=== PATIENT | female | born 1990 | race Caucasian/White ===

== ENCOUNTER 2016-03-04 14:50 | Inpatient (IN) | payer OTHER ==
[~2016-03-04] VITALS: Ht 157.5 cm; Wt 128.4 kg
[2016-03-04] MEDS ORDERED: OXYTOCIN 10 UNITS/ML VIAL ONE (15:25)
[2016-03-04] MEDS ORDERED: LACTATED RINGERS 1,000 ML IV SCH (15:28)
[2016-03-04] MEDS ORDERED: CITRIC ACID/SODIUM CITRATE 30 ML UDC PO SCH (15:30)
[2016-03-04] MEDS ORDERED: IBUPROFEN 800 MG TAB PO PRN ×2 (15:30→17:45)
[2016-03-04 16:00] VITALS: BP 144/85
[2016-03-04] MEDS ORDERED: KETOROLAC 30 MG/ML VIAL IVP ONE (16:52)
[2016-03-04] MEDS ORDERED: ONDANSETRON 4 MG/2 ML VIAL IVP ONE (16:52)
[2016-03-04] MEDS ORDERED: PROPOFOL 200 MG/20 ML VIAL IV ONE (16:52)
[2016-03-04] MEDS ORDERED: DESFLURANE 240 ML BTL INH ONE (16:52)
[2016-03-04] MEDS ORDERED: SUCCINYLCHOLINE CHLORIDE 200 MG/10 ML VIAL IV ONE (16:52)
[2016-03-04] MEDS ORDERED: HYDROmorphone PFS 2 MG/ML SYR ONE ×2 (17:16→18:20)
[2016-03-04] MEDS ORDERED: ONDANSETRON 4 MG/2 ML VIAL IVP PRN (17:25)
[2016-03-04] MEDS ORDERED: HYDROmorphone 1 MG/ML AMP IVP PRN (17:25)
[2016-03-04] MEDS ORDERED: OXYTOCIN 20 UNITS/LR PREMIX 1,000 ML IV SCH (17:41)
[2016-03-04] MEDS ORDERED: METHYLERGONOVINE 0.2 MG/ML AMP IM PRN (17:45)
[2016-03-04] MEDS ORDERED: TRIMETHOBENZAMIDE 200 MG/2 ML SYR IM PRN (17:45)
[2016-03-04] MEDS ORDERED: MEASLES, MUMPS, AND RUBELLA 1 VIAL SQVAC PRN (17:45)
[2016-03-04] MEDS ORDERED: HYDROcodone/APAP 5/325 MG 1 TAB TAB PO PRN (17:45)
[2016-03-04] MEDS ORDERED: TEMAZEPAM 15 MG CAP PO PRN (17:45)
[2016-03-04] MEDS ORDERED: HEPATITIS B VACCINE PEDIATRIC 10 MCG/0.5 ML VIAL IMVAC ONE (18:21)
[2016-03-04] MEDS ORDERED: PHYTONADIONE 1 MG/0.5 ML SYR ONE (18:21)
[2016-03-04] MEDS: HYDROmorphone 1 MG/ML AMP IVP PRN (20:37)
[2016-03-04] MEDS: DOCUSATE SOD/SENNA 50/8.6 MG 1 TAB PO SCH (21:00)
[2016-03-05] MEDS ORDERED: KETOROLAC 30 MG/ML VIAL IVP PRN
[2016-03-05] MEDS: HYDROmorphone 1 MG/ML AMP IVP PRN (00:41)
[2016-03-05] MEDS: oxyCODONE/APAP 5/325 MG 1 TAB TAB PO PRN ×3 (06:23→19:38)
[2016-03-05] MEDS: SIMETHICONE 80 MG TAB.CHEW PO PRN ×3 (08:54→17:54)
--- NOTE | 2016-03-05 10:04 | NUR ---
PATIENT HAS BEEN SCREENED AND CATEGORIZED LOW NUTRITION RISK. PATIENT WILL BE SEEN WITHIN 7 DAYS OF ADMISSION. 03/11/[address]
[2016-03-05] MEDS: DOCUSATE SOD/SENNA 50/8.6 MG 1 TAB PO SCH (19:38)
[2016-03-06] MEDS: oxyCODONE/APAP 5/325 MG 1 TAB TAB PO PRN ×2 (01:14→08:30)
== END 2016-03-06 14:00 | disposition home or self-care (01) | DRG 540 ==
LOC: MLD 14:50 → MFCC 17:29
PROVIDERS: ADMIT Obstetrics & Gynecology; ATTEND Obstetrics & Gynecology
PROC: 0UB70ZZ Excision of Bilateral Fallopian Tubes, Open Approach (ICD-10-PCS; 2016-03-04)
PROC: 3E0234Z Introduction of Serum, Toxoid and Vaccine into Muscle, Percutaneous Approach (ICD-10-PCS; 2016-03-04)
PROC: 10D00Z1 Extraction of Products of Conception, Low, Open Approach (ICD-10-PCS; principal; 2016-03-04 15:30)
PROC: 30233N1 Transfusion of Nonautologous Red Blood Cells into Peripheral Vein, Percutaneous Approach (ICD-10-PCS; 2016-03-05)
DX: O34.211 Maternal care for low transverse scar from previous cesarean delivery (principal); Z68.43 Body mass index [BMI] 50.0-59.9, adult; O99.214 Obesity complicating childbirth; E66.01 Morbid (severe) obesity due to excess calories; O36.8130 Decreased fetal movements, third trimester, not applicable or unspecified; Z23 Encounter for immunization; Z30.2 Encounter for sterilization; Z37.0 Single live birth; Z3A.38 38 weeks gestation of pregnancy